=== PATIENT | male | born 1945 | race Caucasian/White ===

== ENCOUNTER 2018-09-27 09:24 | Emergency (ER) | payer MEDICARE, MEDICAID ==
[~2018-09-27] VITALS: Ht 167.6 cm; Wt 79.0 kg
[~2018-09-27 09:24] MED LIST: AMIO100T4 PO; AMLO10TA80 PO; APIX5TAB PO; ATOR40TA70 PO; DILT-2 PO; FINA5TAB11 PO; GABA-529 PO; MECL-109 PO; ZET10 PO
[2018-09-27 11:11] LABS: BASOPHILS % 0.7 % (0.0-2.0); EOSINOPHILS % 1.1 % (0.0-5.0); HEMATOCRIT. 42.4 % (42.0-52.0); HEMOGLOBIN. 14.3 g/dL (14.0-18.0); LYMPHOCYTES % 20.6 % (20.0-50.0); MEAN CORPUSCULAR HEMOGLOBIN 32.1 pg (28.0-32.0); MEAN CORPUSCULAR VOLUME 95.1 fL (80.0-94.0); MEAN PLATELET VOLUME 8.5 fl (7.4-10.4); MONOCYTES % 7.4 % (2.0-8.0); NEUTROPHILS % 70.2 % (40.0-76.0); PLATELET 187 x1000/uL (130-400); RED BLOOD CELL COUNT 4.46 mill/uL (4.7-6.1); RED CELL DISTRIBUTION WIDTH 16.6 % (11.6-14.6)
[2018-09-27] MEDS ORDERED: ACETAMINOPHEN 325MG TABLET PO ONE (11:15)
[2018-09-27 11:16] LABS: CHLORIDE 107 mEq/L (98-107)
[2018-09-27 11:24] LABS: PROTHROMBIN TIME 10.1 sec (9.6-11.0)
[2018-09-27 11:40] LABS: C REACTIVE PROTEIN QUANT 8.7 mg/L (0.0-3.0)
[2018-09-27 15:57] VITALS: BP 130/74
== END 2018-09-27 15:58 | disposition home or self-care (01) ==
LOC: ER 09:24
DX: M87.045 Idiopathic aseptic necrosis of left finger(s) (principal); E78.00 Pure hypercholesterolemia, unspecified; I10 Essential (primary) hypertension; E11.9 Type 2 diabetes mellitus without complications; I25.2 Old myocardial infarction; Z90.89 Acquired absence of other organs; Z98.61 Coronary angioplasty status; Z98.890 Other specified postprocedural states; Z79.899 Other long term (current) drug therapy
CPT/HCPCS: 36415; 71045; 73130; 80048; 85651; 86140; 86850; 86900; 93005; 99284